=== PATIENT | female | born 1980 | race Caucasian/White ===

== ENCOUNTER 2019-04-30 18:57 | Emergency (ER) | payer BC ==
[~2019-04-30] VITALS: Ht 167.6 cm; Wt 61.2 kg
[2019-04-30 19:38] LABS: ABSOLUTE NEUTROPHILS 5.5 thou/uL (1.4-8.2); BASOPHILS 0.5 % (0.0-2.0); EOSINOPHILS 0.5 % (0.0-3.0); HEMATOCRIT 41.8 % (37.0-47.0); HEMOGLOBIN 14.3 gm/dL (12.0-15.0); LYMPHOCYTES 20.6 % (24.0-44.0); MCH 31.1 pg (26.0-34.0); MCHC 34.2 g/dL (28.0-37.0); MONOCYTES 4.8 % (1.0-8.0); PLATELET COUNT 237 thou/uL (150-400); POLYS 73.6 % (36.0-66.0); RBC 4.59 mil/uL (4.20-5.00); RDW 11.8 % (10.5-14.5); WBC 7.5 thou/uL (4.0-11.0)
[2019-04-30 19:52] LABS: CALCIUM 9.5 mg/dL (8.5-10.1); CREATININE 0.7 mg/dL (0.6-1.0); POTASSIUM 3.7 mmol/L (3.5-5.1)
[2019-04-30 19:55] LABS: TOTAL BILIRUBIN 0.3 mg/dL (<0.1-1.0); TOTAL PROTEIN 8.3 g/dL (6.4-8.2)
[2019-04-30 21:20] LABS: URINE BILIRUBIN NEGATIVE (Negative); URINE BLOOD TRACE (Negative); URINE CLARITY CLEAR; URINE COLOR YELLOW; URINE GLUCOSE-RANDOM* NEGATIVE (Negative); URINE KETONES NEGATIVE (Negative); URINE LEUKOCYTES-REFLEX NEGATIVE (Negative); URINE NITRITE-REFLEX NEGATIVE (Negative); URINE PROTEIN (DIPSTICK) NEGATIVE (Negative); URINE SPECIFIC GRAVITY 1.015 (1.005-1.035); URINE UROBILINOGEN 0.2 E.U./dl (0.2-1.0)
[2019-04-30 22:01] VITALS: BP 130/60
== END 2019-04-30 22:02 | disposition home or self-care (01) ==
LOC: ER 18:57
PROVIDERS: Nurse Practitioner
DX: S30.0XXA Contusion of lower back and pelvis, initial encounter (principal); S09.8XXA Other specified injuries of head, initial encounter; M79.601 Pain in right arm; M25.511 Pain in right shoulder; V89.2XXA Person injured in unspecified motor-vehicle accident, traffic, initial encounter; Y92.89 Other specified places as the place of occurrence of the external cause; Y93.89 Activity, other specified; Y99.8 Other external cause status